=== PATIENT | female | born 1965 | race Caucasian/White ===

== ENCOUNTER → 2018-02-08 | Outpatient (CLI) | payer MEDICAID ==
--- NOTE | 2018-02-08 21:43 | XR ---
EXAMINATION TYPE: XR cervical spine comp DATE OF EXAM: 02/08/2018 COMPARISON: NONE HISTORY: 52-year-old female postsurgical evaluation, spondylosis TECHNIQUE: 4 views FINDINGS: Intervertebral disc prostheses are present at C3-C4 and C4-C5 with a ACDF changes from C5 through C7 levels. Alignment is maintained. The predental space widening or prevertebral soft tissue swelling. M inimal grade 1 anterolisthesis on flexion and the prosthetic C3-C4 and C4-C5 levels. This corrects wi th extension. IMPRESSION: 1. Status post C3-C4 and C4-C5 disc prostheses. 2. Status post C5-C7 ACDF. 3. Minimal grade 1 anterolisthesis at the prosthetic C3-C4 and C4-C5 levels during neck flexion which corrects upon neck extension.
== END | disposition home or self-care (01) ==
LOC: RADXRMAIN 15:47
DX: M47.22 Other spondylosis with radiculopathy, cervical region (principal); Z98.1 Arthrodesis status
CPT/HCPCS: 72050

== ENCOUNTER → 2019-08-16 | Outpatient (CLI) | payer MEDICAID ==
--- NOTE | 2019-08-16 18:43 | P.STRESS ---
- Stress Test Note Stress Test Results/Findings: Exam Performed: stress echo exercise Exam Date: 08/16/19 Reason for Exam: CHEST PAIN Height: 5 ft Weight: 69.853 kg Protocol: STRESS ECHO Stage: 1 Duration of Exercise: 3:56 MINUTES Resting Heart Rate: 80 Resting Blood Pressure: 142/78 Maximum Achieved Heart Rate: 164 Maximum Achieved Blood Pressure: 188/81 85% PMHR: 142 100% PMHR: 167 METS: 5.6 Technologist Comment: Stress Test Results/Findings: This is a 53-year-old female with history of hypercholesterolemia and asthma being evaluated for symptoms of chest pain. Stress data: Baseline EKG showed sinus rhythm with normal AR interval and QRS duration. Blood pressure at rest is 140/78 with pulse rate of 80. Patient walked on the Shay protocol for close to 4 minutes achieving a maximal heart rate of 164 with blood pressure 188/81. EKGs taken during and after exercise showed mild J-point depression with up sloping ST segments. The changes are not specific for ischemia. Echo data: Baseline echo images showed normal wall motion and thickening. Exercise echo images showed augmentation of wall motion and thickening in all the segments. Final impression: #1. Negative stress test #2. Negative stress echo
--- NOTE | 2019-08-17 09:10 | ECHOS ---
Stress Test Results/Findings: Exam Performed: stress echo exercise Exam Date: 08/16/19 Reason for Exam: CHEST PAIN Height: 5 ft Weight: 69.853 kg Protocol: STRESS ECHO Stage: 1 Duration of Exercise: 3:56 MINUTES Resting Heart Rate: 80 Resting Blood Pressure: 142/78 Maximum Achieved Heart Rate: 164 Maximum Achieved Blood Pressure: 188/81 85% PMHR: 142 100% PMHR: 167 METS: 5.6 Technologist Comment: Stress Test Results/Findings: This is a 53-year-old female with history of hypercholesterolemia and asthma being evaluated for symptoms of chest pain. Stress data: Baseline EKG showed sinus rhythm with normal AK interval and QRS duration. Blood pressure at rest is 140/78 with pulse rate of 80. Patient walked on the Shay protocol for close to 4 minutes achieving a maximal heart rate of 164 with blood pressure 188/81. EKGs taken during and after exercise showed mild J-point depression with up sloping ST segments. The changes are not specific for ischemia. Echo data: Baseline echo images showed normal wall motion and thickening. Exercise echo images showed augmentation of wall motion and thickening in all the segments. Final impression: #1. Negative stress test #2. Negative stress echo MTDD
== END ==
LOC: RADNMMAIN 09:47
PROVIDERS: ATTEND Family Medicine
DX: R07.89 Other chest pain (principal)
CPT/HCPCS: 93351

== ENCOUNTER → 2019-12-23 | Outpatient (CLI) | payer MEDICAID ==
--- NOTE | 2019-12-26 11:23 | MM ---
Reason for exam: screening (asymptomatic). Last mammogram was performed 2 years and 1 month ago. History: Patient is postmenopausal. Family history of breast cancer in paternal aunt. Took hormonal contraceptives for 6 years. Taking estrogen for 4 years. Physical Findings: A clinical breast exam by your physician is recommended on an annual basis and results should be correlated with mammographic findings. MG 3D Screening Mammo W/Cad Bilateral CC and MLO view(s) were taken. Prior study comparison: December 01, 2017, mammogram. October 02, 2016, mammogram. There are scattered fibroglandular densities. Benign appearing calcifications in the left breast. No suspicious abnormality. No significant changes when compared with prior studies. ASSESSMENT: Benign, BI-RAD 2 RECOMMENDATION: Routine screening mammogram of both breasts in 1 year.
== END | disposition home or self-care (01) ==
LOC: RADMAMWWP 09:18
PROVIDERS: ATTEND Family Medicine
DX: Z12.31 Encounter for screening mammogram for malignant neoplasm of breast (principal)
CPT/HCPCS: 77063; 77067

== ENCOUNTER → 2020-01-13 | Outpatient (CLI) | payer MEDICAID ==
--- NOTE | 2020-01-13 08:36 | MR ---
EXAMINATION TYPE: MR brain wo con DATE OF EXAM: 01/13/2020 COMPARISON: NONE HISTORY: paresthesia of skin, numbness in legs and feet TECHNIQUE: Multiplanar, multisequence imaging of the brain and brainstem is performed without IV cont rast. Demyelinating disease protocol. FINDINGS: Diffusion weighted images demonstrate no evidence of a recent infarct or other diffusion abnormality. There is no worrisome extra-axial fluid collection. Diffuse ventricular and sulcal prominence consist ent with mild diffuse age-related cerebral atrophy and scattered foci of T2 hyperintensity seen throu ghout the white matter bilaterally. Approximately 15 scattered lesions. For reference 7 x 3 x 3 mm le hernandez axial image 20 and sagittal image 9 posterior left frontal deep white matter at level of canales radiata. Lesion is nonspecific in appearance and distribution. Midline structures demonstrate normal morphology. The craniocervical junction appears within normal limits. Normal vascular flow voids are present. The visualized sinuses are clear and the globes are i ntact. IMPRESSION: Mild diffuse age-related cerebral atrophy and mild nonspecific white matter changes most likely on basis of product of chronic small vessel ischemic change in patient of this age. Other etio logies not excluded.
== END | disposition home or self-care (01) ==
LOC: RADMRIMAIN 07:43
PROVIDERS: ATTEND Family Medicine
DX: G31.1 Senile degeneration of brain, not elsewhere classified (principal); R90.89 Other abnormal findings on diagnostic imaging of central nervous system
CPT/HCPCS: 70551

== ENCOUNTER → 2020-10-23 | Outpatient (CLI) | payer MEDICAID ==
[2020-10-24 14:08] LABS: APTT 47 Sec(s) (<43); APTT 1:1 Mix 40 Sec(s) (<43); DRVVT 1:1 Mix 41 Sec(s) (<44); Dilute Russell Viper Venom 49 Sec(s) (<44)
== END | disposition home or self-care (01) ==
LOC: LABWHC1 12:00
PROVIDERS: ATTEND Internal Medicine Rheumatology
DX: R76.0 Raised antibody titer (principal)
CPT/HCPCS: 36415; 85613; 85730; 85732

== ENCOUNTER → 2021-08-06 | Outpatient (CLI) | payer MEDICAID ==
--- NOTE | 2021-08-06 11:27 | MM ---
Reason for exam: screening (asymptomatic). Last mammogram was performed 1 year and 7 months ago. History: Patient is postmenopausal. Family history of breast cancer in paternal aunt. Took hormonal contraceptives for 6 years. Taking estrogen for 5 years. Physical Findings: A clinical breast exam by your physician is recommended on an annual basis and results should be correlated with mammographic findings. MG 3D Screening Mammo W/Cad Bilateral CC and MLO view(s) were taken. Prior study comparison: December 23, 2019, bilateral MG 3d screening mammo w/cad. December 01, 2017, mammogram. October 02, 2016, mammogram. The breast tissue is heterogeneously dense. This may lower the sensitivity of mammography. Finding: There are typically benign round calcifications in the upper outer quadrant, anterior position of the left breast. Previous mammotome biopsy in the right breast. There is no discrete abnormality. ASSESSMENT: Benign, BI-RAD 2 RECOMMENDATION: Routine screening mammogram of both breasts in 1 year.
== END | disposition home or self-care (01) ==
LOC: RADMAMWWP 07:03
PROVIDERS: ATTEND Family Medicine
DX: Z12.31 Encounter for screening mammogram for malignant neoplasm of breast (principal); N28.1 Cyst of kidney, acquired
CPT/HCPCS: 77063; 77067

== ENCOUNTER → 2022-09-05 | Outpatient (CLI) | payer MEDICAID ==
--- NOTE | 2022-09-05 12:51 | XR ---
EXAMINATION TYPE: XR knee 4V RT DATE OF EXAM: 09/05/2022 12:10 PM INDICATION: Patient age:Female; 56 years old; Reason for study: M25.561; COMPARISON: None. TECHNIQUE: The Right knee(s) was examined in 4 projections. Frontal, lateral and oblique and sunrise patella. FINDINGS: No evidence of any acute osseous pathology, joint space narrowing, soft tissue swelling, or joint effusion is noted. Mild osteophyte formation of the tibial plateau. IMPRESSION: 1. No acute osseous pathology. 2. Mild osteoarthritic changes.
== END | disposition home or self-care (01) ==
LOC: RADXRMAIN 11:37
PROVIDERS: ATTEND Family Medicine
DX: M17.11 Unilateral primary osteoarthritis, right knee (principal)

== ENCOUNTER → 2022-11-13 | Outpatient (CLI) | payer MEDICAID ==
[2022-11-13 10:41] LABS: Basophils # (A) 0.03 X 10*3/uL (0.00-0.10); Basophils % (A) 0.5 %; Eosinophils # (A) 0.44 X 10*3/uL (0.04-0.35); HCT 42.8 % (37.2-46.3); Immature Grans, Automated 0.5 %; Lymphocytes # (A) 1.31 X 10*3/uL (0.90-5.00); Lymphocytes % (A) 20.8 %; MCH 31.7 pg (27.0-32.0); MCHC 32.7 g/dL (32.0-37.0); MCV 96.8 fL (80.0-97.0); Monocytes # (A) 0.64 X 10*3/uL (0.20-1.00); Monocytes % (A) 10.1 %; NRBC Per 100 WBC 0 /100 WBCS (0.0-0.0); Neutrophils # (A) 3.86 X 10*3/uL (1.80-7.70); Neutrophils % (A) 61.1 %; Platelet Count 386 X 10*3/uL (140-440); RBC 4.42 X 10*6/uL (4.10-5.20); RDW 11.6 % (11.5-14.5); WBC 6.31 X 10*3/uL (4.50-10.00)
[2022-11-13 11:06] LABS: Erythrocyte Sedimentation Rate 17 mm/Hr (0-30)
[2022-11-13 11:16] LABS: ALT 19 U/L (8-44); AST 20 U/L (13-35); African American GFR (CKD) 82.2 (60.0-200.0); Albumin 4.6 g/dL (3.8-4.9); Albumin/Globulin Ratio 1.88 (1.60-3.17); Alkaline Phosphatase 71 U/L (41-126); BUN/Creat Ratio 18.09 Ratio (12.00-20.00); Blood Urea Nitrogen 16.3 mg/dL (9.0-27.0); Calcium 9.7 mg/dL (8.7-10.3); Carbon Dioxide 25.2 mmol/L (20.0-27.5); Chloride 102 mmol/L (96-109); Chol/HDL Ratio 2.85 Ratio; Globulin 2.4 g/dL (1.6-3.3); Glucose 100 mg/dL (70-110); LDL Cholesterol,Calculated 115.7 mg/dL (0.0-131.0); Non-African American GFR(CKD) 70.9 (60.0-200.0); Potassium 4.5 mmol/L (3.5-5.5); Sodium 140 mmol/L (135-145)
[2022-11-13 11:26] LABS: Rheumatoid Factor, Qnt 24 IU/mL (0-15)
== END | disposition home or self-care (01) ==
LOC: LABWHC1 07:05
PROVIDERS: ATTEND Family Medicine
DX: Z00.00 Encounter for general adult medical examination without abnormal findings (principal); E78.5 Hyperlipidemia, unspecified; M12.30 Palindromic rheumatism, unspecified site; E03.9 Hypothyroidism, unspecified
CPT/HCPCS: 36415; 80053; 80061; 82306; 83036; 84439; 84443; 84481; 85025; 85652; 86140; 86431